=== PATIENT | male | born 1995 | race Hispanic/Latino ===

== ENCOUNTER 2018-08-28 15:27 | Emergency (ER) | payer MEDICAID, OTHER | END 2018-08-28 15:57 | disposition home or self-care (01) | LOC: EDH 15:27 | DX: J06.9 Acute upper respiratory infection, unspecified (principal); Z72.0 Tobacco use | CPT/HCPCS: 99281 ==

== ENCOUNTER 2023-04-30 14:57 | Emergency (ER) | payer OTHER ==
[~2023-04-30] VITALS: Ht 170.2 cm; Wt 81.6 kg
[2023-04-30 15:04] VITALS: BP 165/60; PULSE 72; RESP 16; O2SAT 100
[2023-04-30] MEDS ORDERED: KETOROLAC 60 MG VIAL (30MG/ML) IM ONE (16:30)
== END 2023-04-30 16:43 | disposition home or self-care (01) ==
LOC: EDH 14:57
DX: S92.002A Unspecified fracture of left calcaneus, initial encounter for closed fracture (principal); X58.XXXA Exposure to other specified factors, initial encounter; Y93.89 Activity, other specified; Y92.89 Other specified places as the place of occurrence of the external cause; Y99.8 Other external cause status
CPT/HCPCS: 99283; 73630; 96372; J1885